=== PATIENT | female | born 1935 | race Caucasian/White ===

== ENCOUNTER 2017-07-04 10:30 | Inpatient (IN) | payer MEDICARE, OTHER ==
[2017-07-04] MEDS ORDERED: GI Cocktail Oral Solution 30 ML PO ONE (10:42)
[2017-07-04] MEDS ORDERED: Morphine 4 MG/ML Syringe IVPUSH ONE ×2 (10:42→14:51)
[2017-07-04] MEDS ORDERED: Sodium Chloride 0.9% 500 ML IV SCH (10:45)
--- NOTE | 2017-07-04 10:45 | EDM.PDOC ---
ED HPI GENERAL MEDICAL PROBLEM - General Chief Complaint: Chest Pain Stated Complaint: CHEST PAINS, OWN VEHICLE Time Seen by Provider: 07/04/17 10:40 Source of Information: Reports: Patient History Limitations: Reports: No Limitations - History of Present Illness INITIAL COMMENTS - FREE TEXT/NARRATIVE: 81 yo white female c/o mid sternal chest pain @ 6AM while in bed. Pt. states similar episode last year and negative for heart.. Pt. states pain worse with breathing and pain is 10/10 with deep breathing Onset: Today Onset Date: 07/04/17 Onset Time: 06:00 Duration: Hour(s): Location: Reports: Chest Quality: Reports: Same as Previous Episode (one year ago) Severity: Moderate Improves with: Reports: None Worsens with: Reports: Breathing Associated Symptoms: Reports: Chest Pain Mid-Sternal Chest Pain Score (Numeric/FACES): 10 - Related Data Allergies Allergy/AdvReac Type Severity Reaction Status Date / Time No Known Allergies Allergy Verified 07/04/17 10:45 Home Meds: Home Meds Alendronate [Fosamax] 70 mg PO WEEKLY 07/04/17 [History] Raloxifene HCl 60 mg PO DAILY 07/04/17 [History] ED ROS GENERAL - Review of Systems Review Of Systems: See Below Constitutional: Reports: No Symptoms HEENT: Reports: No Symptoms Respiratory: Reports: Pleuritic Chest Pain Cardiovascular: Reports: Chest Pain Endocrine: Reports: No Symptoms GI/Abdominal: Reports: No Symptoms : Reports: No Symptoms Musculoskeletal: Reports: No Symptoms Skin: Reports: No Symptoms Neurological: Reports: No Symptoms Psychiatric: Reports: No Symptoms Hematologic/Lymphatic: Reports: No Symptoms Immunologic: Reports: No Symptoms ED EXAM, GENERAL - Physical Exam Exam: See Below Exam Limited By: No Limitations General Appearance: Alert, Anxious Eye Exam: Bilateral Eye: EOMI, PERRL Ears: Normal External Exam Nose: Normal Inspection Throat/Mouth: Normal Inspection Head: Atraumatic Neck: Normal Inspection Respiratory/Chest: No Respiratory Distress, Lungs Clear Cardiovascular: Normal Peripheral Pulses, Regular Rate, Rhythm, No Edema, No Murmur Peripheral Pulses: 2+: Femoral (L), Femoral (R) GI/Abdominal: Normal Bowel Sounds, Soft Back Exam: Normal Inspection Extremities: Normal Inspection, Normal Range of Motion Neurological: Alert, Oriented, CN II-XII Intact, Normal Cognition Psychiatric: Normal Affect, Anxious Skin Exam: Warm, Dry Lymphatic: No Adenopathy Course - Vital Signs Last Recorded V/S: Last Vital Signs Temp 35.8 C 07/04/17 10:36 Pulse 70 07/04/17 15:12 Resp 20 07/04/17 15:12 BP 132/48 L 07/04/17 15:12 Pulse Ox 100 07/04/17 15:12 - Orders/Labs/Meds Orders: Active Orders 24 hr Category Date Time Status EKG 12 Lead [EKG Documentation Completion] [RC] STAT Care 07/04/17 10:55 Active Chest w Cont [CT] Urgent Exams 07/04/17 13:46 Taken CULTURE URINE [RM] Stat Lab 07/04/17 12:26 Received Sodium Chloride 0.9% [Normal Saline] 500 ml Med 07/04/17 10:45 Active IV ASDIRECTED Medication Orders Sodium Chloride (Normal Saline) 500 mls @ 100 mls/hr IV ASDIRECTED CAROLINE Last Admin: 07/04/17 10:55 Dose: 100 mls/hr Labs: Laboratory Tests 07/04/17 07/04/17 07/04/17 Range/Units 10:43 10:43 10:43 WBC 24.2 H (5.0-10.0) 10^3/uL RBC 4.52 (4.2-5.4) 10^6/uL Hgb 13.8 (12.0-16.0) g/dL Hct 41.7 (37.0-47.0) % MCV 92.3 (80-100) fL MCH 30.5 (27.0-34.0) pg MCHC 33.1 (33.0-35.0) g/dL Plt Count 279 (150-450) 10^3/uL Neut % (Auto) 91.3 H (42.2-75.2) % Lymph % (Auto) 4.4 L (20.5-50.1) % [place] % (Auto) 4.0 (2-8) % Eos % (Auto) 0.1 L (1.0-3.0) % Baso % (Auto) 0.2 (0.0-1.0) % ESR (0-20) mm/hr PT 9.3 (9.0-12.0) SEC INR 0.9 (0.9-1.2) APTT 21.3 L (22.0-34.0) SEC D-Dimer, Quantitative < 100 (0-400) ng/mL Sodium 139 (135-145) mmol/L Potassium 4.1 (3.6-5.0) mmol/L Chloride 103 (101-111) mmol/L Carbon Dioxide 26.0 (21.0-31.0) mmol/L Anion Gap 14.1 BUN 19 H (7-18) mg/dL Creatinine 0.9 (0.6-1.3) mg/dL Est Cr Clr Drug Dosing 40.09 mL/min Estimated GFR (MDRD) > 60 BUN/Creatinine Ratio 21.11 Glucose 120 H (74-105) mg/dL Lactic Acid (0.5-2.2) mmol/L Calcium 9.4 (8.4-10.2) mg/dl Total Bilirubin 0.6 (0.2-1.0) mg/dL AST 30 (10-42) IU/L ALT 24 (10-60) IU/L Alkaline Phosphatase 55 (42-121) IU/L Troponin I < 0.02 (0.00-0.02) ng/ml Total Protein 7.2 (6.7-8.2) g/dl Albumin 3.9 (3.2-5.5) g/dl Globulin 3.3 Albumin/Globulin Ratio 1.18 Urine Color (YELLOW) Urine Appearance (CLEAR) Urine pH (5.0-9.0) Ur Specific [place] (1.005-1.030) Urine Protein (NEGATIVE) Urine Glucose (UA) (NEGATIVE) Urine Ketones (NEGATIVE) Urine Occult Blood (NEGATIVE) Urine Nitrite (NEGATIVE) Urine Bilirubin (NEGATIVE) Urine Urobilinogen (0.2-1.0) mg/dL Ur Leukocyte Esterase (NEGATIVE) Urine RBC /HPF Urine WBC (0-5/HPF) /HPF Ur Epithelial Cells /HPF Urine Bacteria (0-FEW/HPF) /HPF Urine Mucus /LPF 07/04/17 07/04/17 07/04/17 Range/Units 10:50 12:18 12:26 WBC (5.0-10.0) 10^3/uL RBC (4.2-5.4) 10^6/uL Hgb (12.0-16.0) g/dL Hct (37.0-47.0) % MCV (80-100) fL MCH (27.0-34.0) pg MCHC (33.0-35.0) g/dL Plt Count (150-450) 10^3/uL Neut % (Auto) (42.2-75.2) % Lymph % (Auto) (20.5-50.1) % [place] % (Auto) (2-8) % Eos % (Auto) (1.0-3.0) % Baso % (Auto) (0.0-1.0) % ESR 4 (0-20) mm/hr PT (9.0-12.0) SEC INR (0.9-1.2) APTT (22.0-34.0) SEC D-Dimer, Quantitative (0-400) ng/mL Sodium (135-145) mmol/L Potassium (3.6-5.0) mmol/L Chloride (101-111) mmol/L Carbon Dioxide (21.0-31.0) mmol/L Anion Gap BUN (7-18) mg/dL Creatinine (0.6-1.3) mg/dL Est Cr Clr Drug Dosing mL/min Estimated GFR (MDRD) BUN/Creatinine Ratio Glucose (74-105) mg/dL Lactic Acid 1.4 (0.5-2.2) mmol/L Calcium (8.4-10.2) mg/dl Total Bilirubin (0.2-1.0) mg/dL AST (10-42) IU/L ALT (10-60) IU/L Alkaline Phosphatase (42-121) IU/L Troponin I (0.00-0.02) ng/ml Total Protein (6.7-8.2) g/dl Albumin (3.2-5.5) g/dl Globulin Albumin/Globulin Ratio Urine Color Yellow (YELLOW) Urine Appearance Slightly cloudy (CLEAR) Urine pH 6.5 (5.0-9.0) Ur Specific [place] 1.020 (1.005-1.030) Urine Protein Negative (NEGATIVE) Urine Glucose (UA) Negative (NEGATIVE) Urine Ketones Negative (NEGATIVE) Urine Occult Blood Trace-intact H (NEGATIVE) Urine Nitrite Negative (NEGATIVE) Urine Bilirubin Negative (NEGATIVE) Urine Urobilinogen 0.2 (0.2-1.0) mg/dL Ur Leukocyte Esterase Moderate H (NEGATIVE) Urine RBC 5-10 H /HPF Urine WBC 20-30 H (0-5/HPF) /HPF Ur Epithelial Cells Few /HPF Urine Bacteria Moderate H (0-FEW/HPF) /HPF Urine Mucus Few H /LPF Meds: Medications Generic Name Dose Route Start Last Admin Trade Name Lisy PRN Reason Stop Dose Admin Sodium Chloride 500 mls @ 100 mls/hr 07/04/17 10:45 07/04/17 10:55 Normal Saline IV 100 mls/hr ASDIRECTED CAROLINE Administration Discontinued Medications Generic Name Dose Route Start Last Admin Trade Name Freq PRN Reason Stop Dose Admin Al Hydroxide/Mg Hydroxide 30 ml 07/04/17 10:42 07/04/17 10:50 Gi Cocktail PO 07/04/17 10:43 30 ml ONETIME ONE Administration Ceftriaxone Sodium 1 gm 07/04/17 13:08 Rocephin IM 07/04/17 13:09 ONETIME ONE Ceftriaxone Sodium 1 gm/ 50 mls @ 100 mls/hr 07/04/17 13:14 07/04/17 13:21 Sodium Chloride IV 07/04/17 13:43 100 mls/hr ONETIME ONE Administration Iopamidol 100 ml 07/04/17 14:00 07/04/17 14:42 Isovue-370 (76%) IVPUSH 07/04/17 14:01 57 ml ONETIME ONE Administration Morphine Sulfate 4 mg 07/04/17 10:42 07/04/17 10:56 Morphine IVPUSH 07/04/17 10:43 4 mg ONETIME ONE Administration Morphine Sulfate 4 mg 07/04/17 14:51 07/04/17 14:59 Morphine IVPUSH 07/04/17 14:52 4 mg ONETIME ONE Administration Ondansetron HCl 4 mg 07/04/17 11:25 07/04/17 11:32 Zofran IV 07/04/17 11:26 4 mg ONETIME ONE Administration Departure - Departure Time of Disposition: 15:20 Disposition: Admitted As Inpatient 68 Condition: Fair Clinical Impression: Acute pyelonephritis, Dyspepsia Cholelithiasis Qualifiers: Cholelithiasis location: gallbladder Cholecystitis presence: without cholecystitis Biliary obstruction: without biliary obstruction Qualified Code(s) : K80.20 - Calculus of gallbladder without cholecystitis without obstruction Referrals: Hira Otoole MD [Physician] - - My Orders Last 24 Hours: My Active Orders 07/04/17 10:45 Sodium Chloride 0.9% [Normal Saline] 500 ml IV ASDIRECTED 07/04/17 10:55 EKG 12 Lead [EKG Documentation Completion] [RC] STAT 07/04/17 12:26 CULTURE URINE [RM] Stat 07/04/17 13:46 Chest w Cont [CT] Urgent - Assessment/Plan Last 24 Hours: My Active Orders 07/04/17 10:45 Sodium Chloride 0.9% [Normal Saline] 500 ml IV ASDIRECTED 07/04/17 10:55 EKG 12 Lead [EKG Documentation Completion] [RC] STAT 07/04/17 12:26 CULTURE URINE [RM] Stat 07/04/17 13:46 Chest w Cont [CT] Urgent
[2017-07-04 11:10] LABS: CHLORIDE,CL 103 mmol/L (101-111); SODIUM,NA 139 mmol/L (135-145)
[2017-07-04] MEDS ORDERED: Ondansetron 4 MG/2 ML SDV IV ONE (11:25)
[2017-07-04] MEDS ORDERED: cefTRIAXone 1 GM Vial IM ONE (13:08)
[2017-07-04] MEDS ORDERED: cefTRIAXone 1 GM in Sodium Chloride 0.9% 50 ML IV ONE (13:14)
[2017-07-04] MEDS ORDERED: Iopamidol 755 Mg/ML 100 ML Bottle IVPUSH ONE (14:00)
[2017-07-04] MEDS ORDERED: Morphine 2 MG/ML Syringe IVPUSH PRN (16:47)
[2017-07-04] MEDS ORDERED: Ondansetron 4 MG/2 ML SDV IVPUSH PRN (16:47)
[2017-07-04] MEDS: cefTRIAXone 1 GM in Sodium Chloride 0.9% 50 ML IV SCH (18:25)
[2017-07-04] MEDS: Sodium Chloride 0.9% 1,000 ML IV SCH (18:27)
[2017-07-04] MEDS: Acetaminophen 325 MG Tab PO PRN (19:53)
[2017-07-04] MEDS: Heparin Sodium 5,000 Units/ML Vial SUBCUT SCH (22:07)
--- NOTE | 2017-07-04 22:36 | HP ---
CHIEF COMPLAINT: Abdominal pain. HISTORY OF PRESENT ILLNESS: Ms. Josee Ferguson is a 81-year-old female with no significant past medical history. The patient presented to the emergency room complaining of chest pain. Pain is at the retrosternal area and she described the pain as pleuritic, was having associated nausea. Later on, indicated that she did have a little bit of abdominal pain also. No dysuria. No frequency on micturition. No hematuria. Pain continued for more than 4 hours constant, nonradiating. She decided to seek medical attention. The chest pain is nonexertional. In the emergency room, CT scan of the abdomen was done and showed evidence of diverticulitis. Her white cell count was found to be 24,000. REVIEW OF SYSTEMS: An 8-point review of system performed, no other pertinent findings except as noted above. This includes constitutional, cardiac, respiratory, gastrointestinal, and genitourinary. FAMILY HISTORY: Reviewed and considered noncontributory. PAST MEDICAL HISTORY: No chronic medical illnesses. MEDICATIONS: None. SOCIAL HISTORY: Does not smoke. No alcohol use. OBJECTIVE: General: The patient is alert and oriented to place, time, and person. Head: Atraumatic and normocephalic. Ear, Nose, and Throat: Unremarkable. Neck: Supple. Chest: Clear to auscultation. CVS: Regular rate and rhythm. Abdomen: Soft, nontender. No costovertebral angle tenderness. Extremities: No pedal edema. No finger clubbing. Skin: No rash. Neuro: Grossly nonfocal. Endocrine: No thyromegaly. Vital Signs: Reviewed. Blood pressure 108/50, pulse 65 per minute, oxygen saturation 94%. ASSESSMENT: 1. Acute pyelonephritis. The patient presented with generalized body malaise, low-grade fever, and has leukocytosis with a white count of 24,000. 2. Chest pain. The cause of the chest pain is not obvious, it is probably musculoskeletal. It is reproducible. I did obtain a CT scan of the chest, and there is no evidence for pneumonia. PLAN: 1. Admit the patient to medical floor. 2. Empiric antibiotics, intravenous ceftriaxone. 3. Intravenous morphine. 4. Subcutaneous heparin. 5. Intravenous Zofran for nausea. 6. Obtain troponin every 6 hours. 7. Chart reviewed. Discussed with emergency room physician. [facility] /[id number] MTDD
[2017-07-05] MEDS: Heparin Sodium 5,000 Units/ML Vial SUBCUT SCH ×3 (06:36→21:15)
[2017-07-05] MEDS: Acetaminophen 325 MG Tab PO PRN ×2 (08:37→16:35)
[2017-07-05] MEDS: Sodium Chloride 0.9% 1,000 ML IV SCH (08:39)
[2017-07-05] MEDS ORDERED: Acetaminophen/oxyCODONE 325-5 MG Tab PO PRN (10:18)
[2017-07-05] MEDS: guaiFENesin 600 MG Tab.ER PO SCH ×2 (10:25→21:14)
[2017-07-05] MEDS: Pantoprazole 40 MG Tab.CR PO SCH (10:54)
[2017-07-05] MEDS: cefTRIAXone 1 GM in Sodium Chloride 0.9% 50 ML IV SCH (16:28)
[2017-07-05] MEDS: Sodium Chloride 0.9% 10 ML Syringe FLUSH PRN ×2 (18:38→22:24)
[2017-07-06] MEDS: Pantoprazole 40 MG Tab.CR PO SCH (05:08)
[2017-07-06] MEDS: Heparin Sodium 5,000 Units/ML Vial SUBCUT SCH (05:10)
[2017-07-06] MEDS: guaiFENesin 600 MG Tab.ER PO SCH (08:04)
[2017-07-06] MEDS: cefTRIAXone 1 GM in Sodium Chloride 0.9% 50 ML IV SCH (09:26)
--- NOTE | 2017-07-07 06:42 | DISCH ---
FINAL DIAGNOSES: 1. Acute pyelonephritis. 2. Chest pain, likely musculoskeletal. 3. Possible gastroesophageal reflux disease. SUMMARY OF HOSPITAL COURSE: Ms. Josee Ferguson is a 81-year-old female with no significant past medical history. The patient presented to the emergency room complaining of retrosternal chest pain that was described as pleuritic, it was constant. It continued, and we obtained a CT scan of the chest that was negative for dissection and pulmonary embolism. It was also negative for pneumonia. The patient did have some urinary symptoms with frequency and micturition. Her white cell count was elevated up to 21,000. She got admitted to the hospital and started on intravenous antibiotics with Rocephin. White cell count is back to normal. The patient continued to have chest pain, I have started her on Protonix. With that, her pain has subsided. She feels better and will be discharged home. Has been advised to follow up with primary care provider. PHYSICAL EXAMINATION AT DISCHARGE: General: The patient is alert and oriented to place, time, and person. Head: Atraumatic and normocephalic. Ears, Nose, and Throat: Unremarkable. Neck: Supple. Chest: Clear to auscultation. Cardiovascular Systems: Regular rate and rhythm. Abdomen: Soft and nontender. Extremities: No pedal edema. [facility] /[id number]
--- NOTE | 2017-07-07 08:54 | PN ---
DATE: 07/05/2017 SUBJECTIVE: Today Josee indicated that she still has chest pain. It is mostly when she takes deep breath. Without taking deep breaths, she has no pain. No nausea. No vomiting. No fever. No chills. Denies significant abdominal pain. REVIEW OF SYSTEMS: Constitutional, cardiac, respiratory, gastrointestinal, genitourinary, and neurology system were reviewed. No other pertinent findings except as noted above. OBJECTIVE: General: Alert, oriented to place, time, and person. Chest: Clear to auscultation. Cardiovascular: Regular rate and rhythm. Abdomen: Soft, nontender. Extremities: No pedal edema. No finger clubbing. Skin: No rash. Vital Signs: Reviewed. Blood pressure 121/52, oxygen saturation 94%, and pulse is 75 per minute. LABORATORY DATA: White count is down to 13.7, hemoglobin is 12.7. Urine culture shows mixed ni. ASSESSMENT: 1. Acute pyelonephritis. The patient presented with elevated white count of 24,000 and findings consistent with urinary tract infection. 2. Chest pain likely musculoskeletal. Could also be due to pleurisy. CT scan of the chest ruled out pulmonary embolism. Cardiac enzymes are negative. PLAN: 1. We will start patient on Percocet 1-2 tabs every 4 hours. 2. We will obtain repeat CBC. 3. Start patient on Protonix 40 mg daily. Chart reviewed. 4. Discontinue IV fluid. [facility] /[id number]
--- NOTE | 2017-07-08 11:16 | EKG ---
07/04/2017 - BAKARI HESS AMRIT - TIME: 10:36 p.m. FINDINGS: EKG shows normal sinus rhythm, rate of 77 per minute. [facility] /[id number]
== END 2017-07-06 10:10 | disposition home or self-care (01) | DRG 690 ==
LOC: DL.ED 10:30 → DL.MS 15:33 → UNDOADMOB 15:33 → DL.MS 16:47 → OBSVTOIN 16:47
PROVIDERS: ADMIT Hospitalist; ATTEND Hospitalist
DX: N10 Acute pyelonephritis (principal); K80.20 Calculus of gallbladder without cholecystitis without obstruction; R10.13 Epigastric pain; R07.89 Other chest pain; K21.9 Gastro-esophageal reflux disease without esophagitis; Z79.899 Other long term (current) drug therapy
CPT/HCPCS: 71010; 71260; 99285; 96365; 96375; 96376; 96361; 93005; 93010; 85025; 85651; 85730; 85379; 85610; 81001; 36415; 80053; 84484; 83605; 87086; Q9967 ×2; J2270 ×2; J7040; J7050; J2405; A9270; J0696; 87040; 99284; J1644; J7030

== ENCOUNTER 2017-07-29 05:20 | Day surgery (SDC) | payer MEDICARE, OTHER ==
[2017-07-29] MEDS ORDERED: fentaNYL 100 MCG/2 ML SDV IV ONE ×3 (05:21→06:26)
[2017-07-29] MEDS ORDERED: Midazolam 1 MG/ML 2 ML SDV IV ONE ×3 (05:21→06:28)
[2017-07-29] MEDS ORDERED: fentaNYL 100 MCG/2 ML SDV ONE (06:14)
[2017-07-29] MEDS ORDERED: Midazolam 1 MG/ML 2 ML SDV ONE (06:14)
[2017-07-29] MEDS ORDERED: Dextrose 5%-0.45% NaCl 1,000 ML IV SCH (07:00)
[2017-07-29] MEDS ORDERED: Sodium Chloride 0.9% 10 ML Syringe FLUSH PRN (07:00)
--- NOTE | 2017-07-29 07:17 | OR ---
DATE: 07/29/2017 PROCEDURE: Esophagogastroduodenoscopy and multiple pinch biopsies. INSTRUMENT USED: GIF-H180 Olympus video panendoscope. PREMEDICATIONS: No oral topical anesthesia used. Fentanyl 100 mcg intravenous, Versed 1.5 mg intravenous. Nasal O2 cannula. The procedure was done under pulse oximetry, BP recording, and crimper assembler. INDICATION: The patient with persistent unexplained chest pain and dyspepsia, not responsive to medical measures. DESCRIPTION OF PROCEDURE: Esophagogastroduodenoscopy is performed for detection of any active erosive lesions, malignancy also under consideration, H. pylori status to be determined, endoscopic hemostasis therapy if needed. The scope was passed with ease. Adequate visualization of the esophagus was made from proximal to distal areas. No upper esophageal lesions identified. No distal esophageal stricture. No uphill or downhill esophageal varices. No Liset-Dwyer tear. No evidence of erosive esophagitis by Harvey criteria. No esophageal polyp or tumor mass identified. Z-line was seen at around 38 cm distal to the oral verge, configuration consistent with grade 1 by ZAP classification. No proximal gastric varices noted. Gastric fundus examination by retroflexion showed no polypoid lesions. No gastric ulcer, malignant mass, or vascular ectasia identified. Duodenal bulb showed no ulcer. Visualized second part of the duodenum was unremarkable. Multiple pinch biopsies were taken from the gastric antrum and proximal body and sent for PyloriTek test for H. pylori, and if negative in an hour, the tissue is to be sent for histopathology. No bleeding was noted from any of the visualized areas at the completion of examination. IMPRESSION: Normal study. The patient tolerated the procedure well. [facility] /[id number]
== END 2017-07-29 08:55 | disposition home or self-care (01) ==
LOC: DL.ENDO 05:20
PROVIDERS: ATTEND Internal Medicine Gastroenterology
DX: R07.9 Chest pain, unspecified (principal); R10.13 Epigastric pain; N18.9 Chronic kidney disease, unspecified; E78.5 Hyperlipidemia, unspecified; Z88.8 Allergy status to other drugs, medicaments and biological substances
CPT/HCPCS: 43239; 87077; J2250; J3010; J7042

== ENCOUNTER 2022-08-02 19:18 | Emergency (ER) | payer MEDICARE, OTHER ==
[2022-08-02] MEDS ORDERED: Sodium Chloride 0.9% 1,000 ML IV ONE (20:22)
[2022-08-02 20:57] LABS: ANION GAP 13.1 mEq/L (7-13)
[2022-08-02 21:28] LABS: CORONAVIRUS COVID-19 NAA POSITIVE (NEGATIVE)
== END 2022-08-02 21:43 | disposition home or self-care (01) ==
LOC: DL.ED 19:18
DX: U07.1 COVID-19 (principal); R11.2 Nausea with vomiting, unspecified; I12.9 Hypertensive chronic kidney disease with stage 1 through stage 4 chronic kidney disease, or unspecified chronic kidney disease; N18.9 Chronic kidney disease, unspecified; Z88.5 Allergy status to narcotic agent
CPT/HCPCS: 0240U; 36415; 80053; 83605; 83735; 84484; 85025; 93005; 96360; 99284; J7030

== ENCOUNTER 2023-12-12 10:23 | Inpatient (IN) | payer MEDICARE, OTHER ==
[2023-12-12] MEDS: Sodium Chloride 0.9% 10 ML Syringe FLUSH PRN (11:14)
[2023-12-12] MEDS: Iopamidol 612 MG/ML 100 ML Bottle IVPUSH ONE (11:14)
[2023-12-12] MEDS: Sodium Chloride 0.9% 1,000 ML IV ONE (11:15)
[2023-12-12 11:20] LABS: BASOPHILS PERCENT AUTO 0.3 % (0.0-1.0); HEMATOCRIT 40.5 % (37.0-47.0); HEMOGLOBIN 13.4 g/dL (12.0-16.0); LYMPHOCYTES PERCENT AUTO 6.2 % (20.5-50.1); MEAN CORPUSCULAR HEMOGLOBIN 29.6 pg (27.0-34.0); MEAN CORPUSCULAR HGB CONC 33.1 g/dL (33.0-35.0); MEAN CORPUSCULAR VOLUME 89.6 fL (80-100); MONOCYTES PERCENT AUTO 4.3 % (2-8); NEUTROPHILS PERCENT AUTO 89.2 % (42.2-75.2); PLATELET COUNT,PLT 302 10^3/uL (150-450); RED BLOOD CELL COUNT 4.52 10^6/uL (4.2-5.4); WHITE BLOOD CELL COUNT,WBC 16.5 10^3/uL (5.0-10.0)
[2023-12-12 11:38] LABS: APPEARANCE,URINE CLEAR (CLEAR); BILIRUBIN,URINE NEGATIVE (NEGATIVE); COLOR,URINE YELLOW (YELLOW); GLUCOSE,URINE NEGATIVE (NEGATIVE); KETONES,URINE NEGATIVE (NEGATIVE); LEUKOCYTE ESTERASE,URINE SMALL (NEGATIVE); NITRITE,URINE NEGATIVE (NEGATIVE); OCCULT BLOOD,URINE NEGATIVE (NEGATIVE); PH,URINE 6.5 (5.0-9.0); PROTEIN,URINE NEGATIVE (NEGATIVE); UROBILINOGEN,URINE 0.2 mg/dL (0.2-1.0)
[2023-12-12 11:50] LABS: A/G RATIO 1.1; ALBUMIN 3.8 g/dL (3.4-5.0); ANION GAP 16.3 mEq/L (7-13); BILIRUBIN TOTAL 0.6 mg/dL (0.2-1.0); BUN/CREATININE RATIO 23.4 (No establ ref range); CALCIUM 9.7 mg/dL (8.5-10.1); CREATININE 1.07 mg/dL (0.55-1.02); EST CRCL DRUG DOSING (CG) 29.85 mL/min; POTASSIUM,K 4.3 mmol/L (3.5-5.1); PROTEIN TOTAL,TP 7.3 g/dL (6.4-8.2)
[2023-12-12 11:57] LABS: BACTERIA,URINE MODERATE /HPF (0-FEW/HPF); EPITHELIAL CELLS,URINE MODERATE /HPF (NOT SEEN); RBC,URINE 0-5 /HPF (0-5)
[2023-12-12] MEDS: Levofloxacin/Dextrose 5%-Water 500 MG in Premix Bag 1 BAG IV ONE (12:42)
[2023-12-12] MEDS ORDERED: Ondansetron 4 MG Tab.DIS PO PRN (13:43)
[2023-12-12] MEDS ORDERED: Acetaminophen 325 MG Tab PO PRN (13:43)
[2023-12-12] MEDS: metroNIDAZOLE/Normal Saline 500 MG in Premix Bag 1 BAG IV ONE (13:47)
[2023-12-12] MEDS: Sodium Chloride 0.9% 1,000 ML IV SCH (15:36)
[2023-12-12] MEDS: metroNIDAZOLE/Normal Saline 500 MG in Premix Bag 1 BAG IV SCH (22:10)
[2023-12-12] MEDS: Temazepam 15 MG Cap PO PRN (22:15)
[2023-12-13 06:19] LABS: BASOPHILS PERCENT AUTO 0.6 % (0.0-1.0); HEMATOCRIT 36.2 % (37.0-47.0); HEMOGLOBIN 11.8 g/dL (12.0-16.0); LYMPHOCYTES PERCENT AUTO 23.7 % (20.5-50.1); MEAN CORPUSCULAR HEMOGLOBIN 29.7 pg (27.0-34.0); MEAN CORPUSCULAR HGB CONC 32.6 g/dL (33.0-35.0); MEAN CORPUSCULAR VOLUME 91.2 fL (80-100); MONOCYTES PERCENT AUTO 8.7 % (2-8); PLATELET COUNT,PLT 243 10^3/uL (150-450); RED BLOOD CELL COUNT 3.97 10^6/uL (4.2-5.4); WHITE BLOOD CELL COUNT,WBC 8.1 10^3/uL (5.0-10.0)
[2023-12-13 06:37] LABS: ANION GAP 10.9 mEq/L (7-13); CALCIUM 8.1 mg/dL (8.5-10.1); CREATININE 0.86 mg/dL (0.55-1.02); EST CRCL DRUG DOSING (CG) 37.14 mL/min; POTASSIUM,K 3.9 mmol/L (3.5-5.1)
[2023-12-13] MEDS: amLODIPine 5 MG Tab PO SCH (10:01)
[2023-12-13] MEDS: Enoxaparin 40 MG/0.4 ML Syringe SUBCUT SCH (10:01)
[2023-12-13] MEDS: Levofloxacin/Dextrose 5%-Water 750 MG in Premix Bag 1 BAG IV SCH (10:02)
[2023-12-14 06:25] LABS: BASOPHILS PERCENT AUTO 0.9 % (0.0-1.0); HEMOGLOBIN 11.8 g/dL (12.0-16.0); MEAN CORPUSCULAR HEMOGLOBIN 29.9 pg (27.0-34.0); MEAN CORPUSCULAR HGB CONC 32.8 g/dL (33.0-35.0); MEAN CORPUSCULAR VOLUME 91.1 fL (80-100); MONOCYTES PERCENT AUTO 9.5 % (2-8); NEUTROPHILS PERCENT AUTO 64.6 % (42.2-75.2); PLATELET COUNT,PLT 274 10^3/uL (150-450); RED BLOOD CELL COUNT 3.95 10^6/uL (4.2-5.4); WHITE BLOOD CELL COUNT,WBC 7.6 10^3/uL (5.0-10.0)
[2023-12-14 06:45] LABS: ANION GAP 10.9 mEq/L (7-13); CALCIUM 8.2 mg/dL (8.5-10.1); CREATININE 0.87 mg/dL (0.55-1.02); EST CRCL DRUG DOSING (CG) 36.71 mL/min; MAGNESIUM 1.8 mg/dL (1.8-2.4); POTASSIUM,K 3.9 mmol/L (3.5-5.1)
[2023-12-14] MEDS: Levofloxacin 500 MG Tab PO SCH (09:35)
[2023-12-14] MEDS: metroNIDAZOLE 250 MG Tab PO SCH (09:36)
[2023-12-14] MEDS: Amoxicillin/Clavulanate K 875-125 MG Tab PO ONE (10:00)
[2023-12-14] MEDS: Amoxicillin/Clavulanate K 875-125 MG Tab ONE (10:52)
[2023-12-14] MEDS: metroNIDAZOLE 250 MG Tab ONE (10:53)
== END 2023-12-14 11:55 | disposition home or self-care (01) | DRG 392 ==
LOC: DL.ED 10:23 → DL.MS 12:54
PROVIDERS: ADMIT Emergency Medicine; ATTEND Emergency Medicine
DX: K57.32 Diverticulitis of large intestine without perforation or abscess without bleeding (principal); I10 Essential (primary) hypertension; M19.90 Unspecified osteoarthritis, unspecified site; M81.0 Age-related osteoporosis without current pathological fracture; G43.909 Migraine, unspecified, not intractable, without status migrainosus; Z88.5 Allergy status to narcotic agent; Z90.49 Acquired absence of other specified parts of digestive tract; Z98.890 Other specified postprocedural states; Z88.8 Allergy status to other drugs, medicaments and biological substances; Z79.899 Other long term (current) drug therapy
CPT/HCPCS: 36415; 74177; 80053; 81001; 83605; 83690; 85025; 87040 ×2; 87086; 96361; 96374; 99285; J1956; J7030; Q9967; 80048; 83735; 99222; 99232; 99238; A9270-GY; J1650; J1836; J3490

== ENCOUNTER 2024-01-01 06:41 | Day surgery (SDC) | payer MEDICARE, OTHER ==
[~2024-01-01 06:41] MED LIST: Dextrose 5%-0.45% NaCl 1,000 ML IV SCH; Midazolam 1 MG/ML 2 ML SDV ONE; fentaNYL 100 MCG/2 ML SDV ONE
[2024-01-01] MEDS: Dextrose 5%-0.45% NaCl 1,000 ML IV SCH (07:20)
[2024-01-01] MEDS: fentaNYL 100 MCG/2 ML SDV IV ONE (08:07)
[2024-01-01] MEDS: Midazolam 1 MG/ML 2 ML SDV IV ONE (08:08)
== END 2024-01-01 10:10 | disposition home or self-care (01) ==
LOC: DL.ENDO 06:41
PROVIDERS: ATTEND Internal Medicine Gastroenterology
DX: K29.50 Unspecified chronic gastritis without bleeding (principal); K20.90 Esophagitis, unspecified without bleeding; E78.5 Hyperlipidemia, unspecified; N18.9 Chronic kidney disease, unspecified
CPT/HCPCS: 43239; 87077; J2250; J3010; J7042; 88305

== ENCOUNTER 2024-01-08 05:24 | Day surgery (SDC) | payer MEDICARE, OTHER ==
[2024-01-08] MEDS: Dextrose 5%-0.45% NaCl 1,000 ML IV SCH (05:48)
[2024-01-08] MEDS ORDERED: Midazolam 1 MG/ML 2 ML SDV ONE (06:10)
[2024-01-08] MEDS ORDERED: fentaNYL 100 MCG/2 ML SDV ONE (06:10)
[2024-01-08] MEDS: fentaNYL 100 MCG/2 ML SDV IV ONE ×3 (06:30→06:35)
[2024-01-08] MEDS: Midazolam 1 MG/ML 2 ML SDV IV ONE ×6 (06:31→06:41)
== END 2024-01-08 08:10 | disposition home or self-care (01) ==
LOC: DL.ENDO 05:24
PROVIDERS: ATTEND Internal Medicine Gastroenterology
DX: K57.30 Diverticulosis of large intestine without perforation or abscess without bleeding (principal); E78.5 Hyperlipidemia, unspecified; N18.9 Chronic kidney disease, unspecified
CPT/HCPCS: J2250; J3010; J7042